=== PATIENT | female | born 1950 | race African-American/Black ===

== ENCOUNTER 2023-06-21 08:47 | Emergency (ER) | payer MEDICARE, BC ==
[~2023-06-21] VITALS: Ht 172.7 cm; Wt 69.0 kg
[~2023-06-21 08:47] MED LIST: AMLO2.5T45 PO; ASPI-1497 PO; ATOR20TA65 PO; CLOP-31; COR6 PO; INSNOV SUBCUT; INSU100I20 SQ; LOSA100T33 PO; METF-414 PO; METF-818; OMEP20CA14 PO; PROT40 PO
[2023-06-21 08:50] VITALS: BP 175/59; PULSE 82; RESP 18; TEMP 98.4; O2SAT 100
[2023-06-21 10:04] LABS: BASOPHILS % 1.1 % (0.0-2.0); EOSINOPHILS % 1.8 % (0.0-5.0); HEMATOCRIT. 31.8 % (36.0-48.0); HEMOGLOBIN. 10.5 g/dL (12.0-16.0); LYMPHOCYTES % 42.2 % (20.0-50.0); MEAN CORPUSCULAR HEMOGLOBIN 27.5 pg (28.0-32.0); MEAN CORPUSCULAR VOLUME 83.4 fL (81.0-99.0); MEAN PLATELET VOLUME 7.3 fl (7.4-10.4); NEUTROPHILS % 45.9 % (40.0-76.0); PLATELET 364 x1000/uL (130-400); RED BLOOD CELL COUNT 3.82 mill/uL (4.2-5.4); WHITE BLOOD COUNT 5.1 x1000/uL (4.5-11.0)
[2023-06-21 10:10] LABS: CHLORIDE 106 mEq/L (98-107); INDEX HEMOLYSI 1 (1-3); INDEX ICTERIC 1 (1-4); INDEX LIPEMIC 1 (1-3); POTASSIUM 4.4 mEq/L (3.5-5.1); SODIUM 136 mEq/L (136-145)
[2023-06-21 10:19] LABS: ALANINE AMINOTRANSFERASE 99 IU/L (13-61); ALBUMIN 3.6 g/dL (3.4-5.0); ASPARTATE AMINOTRANSFERASE 80 IU/L (15-37); BILIRUBIN TOTAL 0.2 mg/dL (0.1-1.0); CARBON DIOXIDE 25 mEq/L (21-32); CREATININE 0.8 mg/dL (0.6-1.3); GLUCOSE 199 mg/dL (70-105); PROTEIN TOTAL 7.5 g/dL (6.0-8.3); UREA NITROGEN BLOOD 18 mg/dL (7-21)
== END 2023-06-21 11:25 | disposition left against medical advice (07) ==
LOC: ER 08:47
DX: Z53.21 Procedure and treatment not carried out due to patient leaving prior to being seen by health care provider (principal); I49.9 Cardiac arrhythmia, unspecified
CPT/HCPCS: 36415; 80053; 85025; 93005; 99281

== ENCOUNTER 2024-05-30 09:18 | Emergency (ER) | payer BC, MEDICARE ==
[~2024-05-30] VITALS: Ht 165.1 cm; Wt 60.0 kg
[~2024-05-30 09:18] MED LIST changes: +APIX5TAB PO; -METF-414 PO; -PROT40 PO
[2024-05-30 09:21] VITALS: O2SAT 100
[2024-05-30 10:05] LABS: BASOPHILS % 0.9 % (0.0-2.0); DIFFERENTIAL COMMENT 0; EOSINOPHILS % 1.6 % (0.0-5.0); HEMATOCRIT. 28.4 % (36.0-48.0); HEMOGLOBIN. 9.1 g/dL (12.0-16.0); LYMPHOCYTES % 20.2 % (20.0-50.0); MEAN CORPUSCULAR HEMOGLOBIN 25.3 pg (28.0-32.0); MEAN CORPUSCULAR HGB CONC 32.1 g/dL (31.0-37.0); MEAN CORPUSCULAR VOLUME 78.9 fL (81.0-99.0); MEAN PLATELET VOLUME 8.1 fl (7.4-10.4); MONOCYTES % 7.6 % (2.0-8.0); NEUTROPHILS % 69.7 % (40.0-76.0); PLATELET 443 x1000/uL (130-400)
[2024-05-30] MEDS: MORPHINE SULFATE 4 MG/ML INJ (FOR IV/IM USE) IV STA (10:05)
[2024-05-30] MEDS: ONDANSETRON HCL 4MG/2ML INJ IV STA (10:06)
[2024-05-30] MEDS: SODIUM CHLORIDE 0.9% 1,000 ML IV ONE (10:06)
[2024-05-30 10:13] LABS: POTASSIUM 4.3 mEq/L (3.5-5.1)
[2024-05-30 10:14] LABS: CALCIUM 9.9 mg/dL (8.7-10.4)
[2024-05-30 10:18] LABS: INR 0.9; PROTHROMBIN TIME 10.6 sec (9.6-11.0)
[2024-05-30 10:20] LABS: CREATININE 1.3 mg/dL (0.6-1.0)
[2024-05-30] MEDS ORDERED: TOPUD PO (13:46)
[2024-05-30 14:00] VITALS: BP 147/59; PULSE 58; RESP 17; TEMP 98.5
== END 2024-05-30 14:00 | disposition home or self-care (01) ==
LOC: ER 09:18 → 5WST 12:24 → UNDOADMIN 12:24 → UNDODISIN 14:00
DX: R10.84 Generalized abdominal pain (principal); E11.9 Type 2 diabetes mellitus without complications; I10 Essential (primary) hypertension; Z98.890 Other specified postprocedural states; Z88.8 Allergy status to other drugs, medicaments and biological substances; Z88.2 Allergy status to sulfonamides
CPT/HCPCS: 99285; 96374; 96375; 80048; 83690; 85025; 85610; 36415; J2405; J2270; J7030

== ENCOUNTER 2024-06-08 07:24 | Inpatient (IN) | payer MEDICARE, BC ==
[~2024-06-08] VITALS: Ht 172.7 cm; Wt 56.4 kg
[~2024-06-08 07:24] MED LIST changes: +TOPUD PO
[2024-06-08] MEDS: SODIUM CHLORIDE 0.9% 500 ML IV ONE (08:00)
[2024-06-08 09:51] LABS: BASOPHILS % 0.7 % (0.0-2.0); EOSINOPHILS % 0.5 % (0.0-5.0); HEMATOCRIT. 28.8 % (36.0-48.0); HEMOGLOBIN. 9.1 g/dL (12.0-16.0); MEAN CORPUSCULAR HEMOGLOBIN 25.4 pg (28.0-32.0); MEAN CORPUSCULAR HGB CONC 31.4 g/dL (31.0-37.0); MEAN CORPUSCULAR VOLUME 80.9 fL (81.0-99.0); MONOCYTES % 5.8 % (2.0-8.0); PLATELET 426 x1000/uL (130-400); RED BLOOD CELL COUNT 3.56 mill/uL (4.2-5.4); RED CELL DISTRIBUTION WIDTH 15.4 % (11.6-14.6); WHITE BLOOD COUNT 7.7 x1000/uL (4.5-11.0)
[2024-06-08 09:58] LABS: CHLORIDE 97 mEq/L (98-107); POTASSIUM 4.7 mEq/L (3.5-5.1); SODIUM 131 mEq/L (136-145)
[2024-06-08 09:59] LABS: CALCIUM 9.7 mg/dL (8.7-10.4); CARBON DIOXIDE 27 mEq/L (21-32)
[2024-06-08 10:04] LABS: CREATININE 0.9 mg/dL (0.6-1.0); GLUCOSE 232 mg/dL (70-105); UREA NITROGEN BLOOD 16 mg/dL (9-23)
[2024-06-08 10:06] LABS: LACTIC ACID 2.2 mmol/L (0.4-2.0)
[2024-06-08 10:09] LABS: PROTHROMBIN TIME 11.2 sec (9.6-11.0)
[2024-06-08] MEDS: MORPHINE SULFATE 4 MG/ML INJ (FOR IV/IM USE) IV STA (11:45)
[2024-06-08] MEDS: ONDANSETRON HCL 4MG/2ML INJ IV STA (11:45)
[2024-06-08] MEDS ORDERED: LOSARTAN 50 MG TABLET PO NR (14:45)
[2024-06-08] MEDS: AMLODIPINE 5MG TABLET PO NR (14:45)
[2024-06-08] MEDS: ENOXAPARIN 30MG/0.3ML SYR SUBCUT SCH (16:36)
[2024-06-08] MEDS: METFORMIN HCL 500MG TABLET PO SCH (16:38)
[2024-06-08] MEDS: LOSARTAN 100 MG TABLET PO NR (16:57)
[2024-06-08 17:56] VITALS: BP 171/81; PULSE 68; RESP 15; TEMP 98.1
[2024-06-08] MEDS: ACETAMINOPHEN 325MG TABLET PO PRN (18:43)
[2024-06-08] MEDS: CLONIDINE 0.1MG TABLET PO PRN (18:43)
[2024-06-08] MEDS: ONDANSETRON HCL 4MG/2ML INJ IV PRN (18:43)
[2024-06-08 20:00] VITALS: BP 129/65; PULSE 66; RESP 15; TEMP 98
[2024-06-08] MEDS ORDERED: DEXTROSE 50% WATER 50ML SYRINGE IV PRN (21:15)
[2024-06-08] MEDS ORDERED: NALOXONE HCL 0.4MG/ML VIAL IV PRN (21:30)
[2024-06-08] MEDS: ATORVASTATIN CALCIUM 20MG TABLET PO SCH (21:39)
[2024-06-08] MEDS: HYDROCODONE/ACETAMINOPHEN 5/325MG TABLET PO PRN (21:39)
[2024-06-08] MEDS: BLOOD SUGAR DIAGNOSTIC STRIP TEST SCH (21:45)
[2024-06-08] MEDS: INSULIN LISPRO 100 UNITS/ML SUBCUT SCH (21:48)
[2024-06-09] VITALS: BP 140/66; PULSE 64; RESP 16; TEMP 98.1
[2024-06-09 04:00] VITALS: BP 146/81; PULSE 67; RESP 21; TEMP 98
[2024-06-09] MEDS ORDERED: INSULIN LISPRO 100 UNITS/ML SUBCUT SCH (07:20)
[2024-06-09 08:00] VITALS: BP 162/94; PULSE 70; RESP 20; TEMP 98
[2024-06-09] MEDS: LOSARTAN 100 MG TABLET PO SCH (08:59)
[2024-06-09] MEDS: ASPIRIN 81MG TABLET PO SCH (08:59)
[2024-06-09] MEDS: AMLODIPINE 10MG TABLET PO SCH (09:00)
[2024-06-09] MEDS ORDERED: ENOXAPARIN 40MG/0.4ML SYR SUBCUT ONE (09:00)
[2024-06-09 12:00] VITALS: BP 139/71; PULSE 80; RESP 20; TEMP 97.8
[2024-06-09] MEDS: CLONIDINE 0.1MG TABLET PO SCH (13:09)
[2024-06-09 16:00] VITALS: BP 135/70; PULSE 80; RESP 18; TEMP 97.9
[2024-06-09 20:00] VITALS: BP 105/42; PULSE 74; RESP 27; TEMP 98.4
[2024-06-10] VITALS: BP 137/64; PULSE 71; RESP 20; TEMP 98.2
[2024-06-10 04:00] VITALS: BP 113/49; PULSE 72; RESP 20; TEMP 98.2
[2024-06-10 08:00] VITALS: BP 112/61; PULSE 66; RESP 15; TEMP 98
[2024-06-10 12:00] VITALS: BP 121/59; PULSE 67; RESP 21; TEMP 98.3
[2024-06-10 16:00] VITALS: BP 116/41; PULSE 65; RESP 17; TEMP 98.4
[2024-06-10 20:00] VITALS: BP 109/60; PULSE 59; RESP 16; TEMP 98.3
[2024-06-10] MEDS: APIXABAN 5 MG TABLET PO SCH (20:21)
[2024-06-11] VITALS: BP 119/60; PULSE 67; RESP 17; TEMP 98
[2024-06-11 04:00] VITALS: BP 147/68; PULSE 69; RESP 18; TEMP 98.1
[2024-06-11 08:00] VITALS: BP 124/102; PULSE 73; RESP 20; TEMP 98.5
[2024-06-11 12:00] VITALS: BP 111/48; PULSE 62; RESP 20; TEMP 97.9
[2024-06-11 16:00] VITALS: BP 142/63; PULSE 67; RESP 18; TEMP 98.1
[2024-06-11 20:05] VITALS: BP 132/65; PULSE 66; RESP 16; TEMP 97.7
[2024-06-12] VITALS (7 sets, daily range): BP systolic 70–150; BP diastolic 42–64; PULSE 60–73; RESP 13–20; TEMP 97–98.8
[2024-06-12 06:41] LABS: BASOPHILS % 0.6 % (0.0-2.0); DIFFERENTIAL COMMENT 0; EOSINOPHILS % 2.3 % (0.0-5.0); HEMATOCRIT. 22.2 % (36.0-48.0); HEMOGLOBIN. 7.1 g/dL (12.0-16.0); LYMPHOCYTES % 25.2 % (20.0-50.0); MEAN CORPUSCULAR HEMOGLOBIN 25.2 pg (28.0-32.0); MEAN CORPUSCULAR HGB CONC 32.2 g/dL (31.0-37.0); MEAN CORPUSCULAR VOLUME 78.4 fL (81.0-99.0); MEAN PLATELET VOLUME 7.8 fl (7.4-10.4); MONOCYTES % 9.6 % (2.0-8.0); NEUTROPHILS % 62.3 % (40.0-76.0); PLATELET 358 x1000/uL (130-400); RED BLOOD CELL COUNT 2.83 mill/uL (4.2-5.4); RED CELL DISTRIBUTION WIDTH 14.6 % (11.6-14.6); WHITE BLOOD COUNT 4.4 x1000/uL (4.5-11.0)
[2024-06-12 06:45] LABS: CHLORIDE 100 mEq/L (98-107); POTASSIUM 4.7 mEq/L (3.5-5.1); SODIUM 130 mEq/L (136-145)
[2024-06-12 06:46] LABS: CALCIUM 8.9 mg/dL (8.7-10.4); CARBON DIOXIDE 24 mEq/L (21-32)
[2024-06-12 06:51] LABS: CREATININE 0.6 mg/dL (0.6-1.0); GLUCOSE 196 mg/dL (70-105); UREA NITROGEN BLOOD 12 mg/dL (9-23)
[2024-06-12 10:40] LABS: HEMATOCRIT 22.9 % (36.0-48.0); HEMOGLOBIN 7.1 g/dL (12.0-16.0)
[2024-06-12 12:06] LABS: IRON 24 ug/dL (50-170)
[2024-06-12 12:08] LABS: TOTAL IRON BINDING CAPACITY 318 ug/dl (250-425)
[2024-06-12] MEDS: LACTULOSE 20G/30ML UDC PO SCH (21:31)
[2024-06-12 21:51] LABS: HEMOGLOBIN 7.6 g/dL (12.0-16.0)
[2024-06-12 22:01] LABS: FERRITIN 13 ng/mL (10-291); FOLIC ACID (FOLATE) SERUM 7.98 ng/mL (>5.38)
[2024-06-12 22:02] LABS: VITAMIN B12 SERUM 443 pg/mL (211-911)
[2024-06-12] MEDS ORDERED: IOHEXOL-300 100 ML BOTTLE ONE (23:16)
[2024-06-13] VITALS: BP 126/72; PULSE 67; RESP 16; TEMP 98.7
[2024-06-13 04:00] VITALS: BP 131/62; PULSE 64; RESP 16; TEMP 98.6
[2024-06-13 07:04] LABS: BASOPHILS % 1.1 % (0.0-2.0); DIFFERENTIAL COMMENT 0; EOSINOPHILS % 2.5 % (0.0-5.0); HEMATOCRIT. 24.2 % (36.0-48.0); HEMOGLOBIN. 7.6 g/dL (12.0-16.0); LYMPHOCYTES % 20.7 % (20.0-50.0); MEAN CORPUSCULAR HEMOGLOBIN 24.9 pg (28.0-32.0); MEAN CORPUSCULAR HGB CONC 31.4 g/dL (31.0-37.0); MEAN CORPUSCULAR VOLUME 79.2 fL (81.0-99.0); MEAN PLATELET VOLUME 7.9 fl (7.4-10.4); MONOCYTES % 9.5 % (2.0-8.0); NEUTROPHILS % 66.2 % (40.0-76.0); PLATELET 409 x1000/uL (130-400); RED BLOOD CELL COUNT 3.06 mill/uL (4.2-5.4); RED CELL DISTRIBUTION WIDTH 15.2 % (11.6-14.6); WHITE BLOOD COUNT 4.7 x1000/uL (4.5-11.0)
[2024-06-13 07:10] LABS: CHLORIDE 102 mEq/L (98-107); POTASSIUM 5.1 mEq/L (3.5-5.1); SODIUM 132 mEq/L (136-145)
[2024-06-13 07:13] LABS: CALCIUM 9.3 mg/dL (8.7-10.4); CARBON DIOXIDE 25 mEq/L (21-32)
[2024-06-13 07:18] LABS: CREATININE 0.8 mg/dL (0.6-1.0); GLUCOSE 205 mg/dL (70-105); UREA NITROGEN BLOOD 12 mg/dL (9-23)
[2024-06-13 07:20] LABS: ALANINE AMINOTRANSFERASE 82 IU/L (10-49); ALBUMIN 4.1 g/dL (3.2-4.8); ASPARTATE AMINOTRANSFERASE 86 IU/L (<34); BILIRUBIN DIRECT 0.2 mg/dL (<=3.0); BILIRUBIN TOTAL 0.3 mg/dL (0.1-1.0); PROTEIN TOTAL 6.8 g/dL (6.0-8.3)
[2024-06-13 08:00] VITALS: BP 112/65; PULSE 66; RESP 20; TEMP 98.3
[2024-06-13] MEDS: SORBITOL 70% SOLN 30ML PO NR (11:42)
[2024-06-13 12:00] VITALS: BP 133/65; PULSE 69; RESP 18; TEMP 98
[2024-06-13 16:00] VITALS: BP 127/61; PULSE 67; RESP 16; TEMP 98.4
[2024-06-13 20:00] VITALS: BP 141/93; PULSE 70; RESP 16; TEMP 98.9
[2024-06-14] VITALS: BP 147/63; PULSE 66; RESP 20; TEMP 98.8
[2024-06-14] MEDS: HYDROCODONE/ACETAMINOPHEN 5/325MG TABLET PO NR (02:50)
[2024-06-14 04:00] VITALS: BP 129/59; PULSE 64; RESP 14; TEMP 98.5
[2024-06-14 08:00] VITALS: BP 110/57; PULSE 65; RESP 14; TEMP 98.2
[2024-06-14] MEDS ORDERED: GADOTERATE MEGLUMINE 5 MMOL/10 ML VIAL IV ONE (09:15)
[2024-06-14] MEDS ORDERED: NALOXONE HCL 0.4MG/ML VIAL IV PRN (09:45)
[2024-06-14] MEDS: HYDROCODONE/ACETAMINOPHEN 5/325MG TABLET PO PRN (10:15)
[2024-06-14 10:54] LABS: BASOPHILS % 0.4 % (0.0-2.0); DIFFERENTIAL COMMENT 0; EOSINOPHILS % 1.1 % (0.0-5.0); HEMATOCRIT. 26.2 % (36.0-48.0); HEMOGLOBIN. 8.2 g/dL (12.0-16.0); LYMPHOCYTES % 15.6 % (20.0-50.0); MEAN CORPUSCULAR HEMOGLOBIN 24.6 pg (28.0-32.0); MEAN CORPUSCULAR HGB CONC 31.3 g/dL (31.0-37.0); MEAN CORPUSCULAR VOLUME 78.5 fL (81.0-99.0); MEAN PLATELET VOLUME 7.7 fl (7.4-10.4); MONOCYTES % 9.8 % (2.0-8.0); NEUTROPHILS % 73.1 % (40.0-76.0); PLATELET 442 x1000/uL (130-400); RED BLOOD CELL COUNT 3.34 mill/uL (4.2-5.4); RED CELL DISTRIBUTION WIDTH 15.2 % (11.6-14.6); WHITE BLOOD COUNT 5.3 x1000/uL (4.5-11.0)
[2024-06-14 11:11] LABS: CHLORIDE 98 mEq/L (98-107); POTASSIUM 4.3 mEq/L (3.5-5.1); SODIUM 130 mEq/L (136-145)
[2024-06-14 11:12] LABS: CARBON DIOXIDE 26 mEq/L (21-32)
[2024-06-14 11:13] LABS: CALCIUM 9.2 mg/dL (8.7-10.4)
[2024-06-14 11:17] LABS: CREATININE 0.7 mg/dL (0.6-1.0); GLUCOSE 252 mg/dL (70-105)
[2024-06-14 11:18] LABS: UREA NITROGEN BLOOD 8 mg/dL (9-23)
[2024-06-14 11:19] LABS: ALANINE AMINOTRANSFERASE 134 IU/L (10-49); ALBUMIN 4.2 g/dL (3.2-4.8); ASPARTATE AMINOTRANSFERASE 139 IU/L (<34)
[2024-06-14 11:20] LABS: BILIRUBIN TOTAL 0.5 mg/dL (0.1-1.0); PROTEIN TOTAL 6.9 g/dL (6.0-8.3)
[2024-06-14] MEDS: MORPHINE SULFATE 2 MG/ML INJ (NOT FOR IM USE) IV PRN (12:47)
[2024-06-14 13:00] VITALS: BP 121/61; PULSE 72; RESP 15; TEMP 98
[2024-06-14] MEDS: SODIUM CHLORIDE 0.9% 1,000 ML IV SCH (15:41)
[2024-06-14] MEDS: ENOXAPARIN 60MG/0.6ML SYR SUBCUT SCH (15:42)
[2024-06-14 16:00] VITALS: BP 152/60; PULSE 68; RESP 19; TEMP 98.3
[2024-06-14 20:00] VITALS: BP 151/61; PULSE 77; RESP 19; TEMP 98.5
[2024-06-15 00:07] VITALS: BP 149/66; PULSE 72; RESP 13; TEMP 98.3
[2024-06-15 04:00] VITALS: BP 158/71; PULSE 69; RESP 15; TEMP 98.2
[2024-06-15 07:49] LABS: CARBON DIOXIDE 21 mEq/L (21-32); CHLORIDE 103 mEq/L (98-107); POTASSIUM 4.6 mEq/L (3.5-5.1); SODIUM 131 mEq/L (136-145)
[2024-06-15 07:53] LABS: BASOPHILS % 1.1 % (0.0-2.0); EOSINOPHILS % 1.1 % (0.0-5.0); HEMATOCRIT. 25.8 % (36.0-48.0); LYMPHOCYTES % 23.5 % (20.0-50.0); MEAN CORPUSCULAR HEMOGLOBIN 25.4 pg (28.0-32.0); MEAN CORPUSCULAR VOLUME 81.7 fL (81.0-99.0); MEAN PLATELET VOLUME 8.1 fl (7.4-10.4); MONOCYTES % 8.7 % (2.0-8.0); NEUTROPHILS % 65.6 % (40.0-76.0); PLATELET 399 x1000/uL (130-400); RED BLOOD CELL COUNT 3.15 mill/uL (4.2-5.4); WHITE BLOOD COUNT 4.8 x1000/uL (4.5-11.0)
[2024-06-15 07:55] LABS: CREATININE 0.6 mg/dL (0.6-1.0); GLUCOSE 199 mg/dL (70-105); UREA NITROGEN BLOOD 7 mg/dL (9-23)
[2024-06-15 08:00] VITALS: BP 133/58; PULSE 65; RESP 20; TEMP 98.4
[2024-06-15 08:12] LABS: ALPHA FETOPROTEIN TUMOR MARKER < 1.8 ng/mL (0.0-9.2); CA 19-9 405 U/mL (0-35); CANCER ANTIGEN 125 24.5 U/mL (0.0-38.1)
[2024-06-15 12:00] VITALS: BP 127/54; PULSE 69; RESP 20; TEMP 98.3
[2024-06-15 16:00] VITALS: BP 115/53; PULSE 66; RESP 21; TEMP 98.2
[2024-06-15 17:00] VITALS: BP 115/53; PULSE 66; TEMP 98.3; O2SAT 100
== END 2024-06-15 18:56 | DRG 562 ==
LOC: ER 07:24 → 5WST 11:15 → EDBEDREQTM 11:30 → EDBEDREQ 11:30 → 3WST 17:44
PROVIDERS: ADMIT Internal Medicine; ATTEND Internal Medicine
DX: S42.212A Unspecified displaced fracture of surgical neck of left humerus, initial encounter for closed fracture (principal); K55.029 Acute infarction of small intestine, extent unspecified; S32.412A Displaced fracture of anterior wall of left acetabulum, initial encounter for closed fracture; S32.592A Other specified fracture of left pubis, initial encounter for closed fracture; S32.119A Unspecified Zone I fracture of sacrum, initial encounter for closed fracture; E78.5 Hyperlipidemia, unspecified; D64.9 Anemia, unspecified; I10 Essential (primary) hypertension; I25.10 Atherosclerotic heart disease of native coronary artery without angina pectoris; E11.42 Type 2 diabetes mellitus with diabetic polyneuropathy; E11.65 Type 2 diabetes mellitus with hyperglycemia; I65.21 Occlusion and stenosis of right carotid artery; D50.9 Iron deficiency anemia, unspecified; Z96.641 Presence of right artificial hip joint; Z79.82 Long term (current) use of aspirin; K86.89 Other specified diseases of pancreas; W19.XXXA Unspecified fall, initial encounter; R26.9 Unspecified abnormalities of gait and mobility; Z82.49 Family history of ischemic heart disease and other diseases of the circulatory system; Z87.891 Personal history of nicotine dependence; Z88.2 Allergy status to sulfonamides; Z88.3 Allergy status to other anti-infective agents; Z90.49 Acquired absence of other specified parts of digestive tract; Z90.710 Acquired absence of both cervix and uterus; Z91.81 History of falling; Z95.5 Presence of coronary angioplasty implant and graft; Y93.89 Activity, other specified; Y92.89 Other specified places as the place of occurrence of the external cause; Y99.8 Other external cause status
CPT/HCPCS: 36415; 72192; 73030; 73502; 74177; 74183; 80048; 80053; 80076; 82105; 82378; 82607; 82728; 82746; 82962; 83036; 83540; 83550; 83605; 83880; 85014; 85018; 85025; 85044; 86301; 86304; 86850; 86900; 93005; 93306; 93880; 97110; 97162; 97166; 97530; 97535; 99285; A4565; A9577; J1650; J1815; J2270; J2405; J7030; Q9967